=== PATIENT | female | born 1940 | race Asian ===

== ENCOUNTER 2024-10-19 11:35 | Inpatient (IN) | payer OTHER ==
[2024-10-19] MEDS ORDERED: ACETAMINOPHEN INJECTION 100 ML ONE (12:59)
[2024-10-19] MEDS ORDERED: ALBUTEROL SO4 2.5/IPRATROPIUM 0.5 INH SOL 3 ML VIAL.NEB. NEB ONE (12:59)
[2024-10-19] MEDS: ACETAMINOPHEN 1000 MG/100 ML BAG IVPB ONE (13:25)
[2024-10-19] MEDS: ALBUTEROL SO4 2.5/IPRATROPIUM 0.5 INH SOL 3 ML VIAL.NEB. NEB ONE (13:26)
[2024-10-19 13:31] LABS: ABSOLUTE IMMATURE GRANULOCYTES 0.07 x10^3/uL (0.0-0.031); BASOPHILS # 0.09 x10^3/uL (0.01-0.08); EOSINOPHIL % 0.7 % (0.7-5.8); EOSINOPHILS # 0.11 x10^3/uL (0.04-0.36); MCHC 31.8 g/dl (32.2-35.5); MEAN CELL VOLUME 94.0 fl (79.4-94.8); MEAN PLT VOLUME 9.3 fl (9.4-12.3); MONOCYTE # 1.04 x10^3/uL (0.24-0.86); MONOCYTE % 7.0 % (4.7-12.5); RDW 14.1 % (12.5-17.0)
[2024-10-19] MEDS ORDERED: ONDANSETRON 4 MG/2 ML VIAL ONE (13:32)
[2024-10-19] MEDS ORDERED: FAMOTIDINE 20 MG/50 ML IVPB 20 MG/50 ML MG IVPB ONE (13:33)
[2024-10-19] MEDS: FAMOTIDINE 20 MG/50 ML IVPB 20 MG/50 ML MG IVPB ONE (13:42)
[2024-10-19] MEDS: ONDANSETRON 4 MG/2 ML VIAL IVPUSH ONE (13:42)
[2024-10-19] MEDS: SODIUM CHLORIDE 1,000 ML IV STA (13:42)
[2024-10-19 14:00] LABS: CO2 21.0 mmol/L (21-32); GLUCOSE,RANDOM 141.0 mg/dL (74-106)
[2024-10-19 14:03] LABS: CREATININE 1.2 mg/dL (0.55-1.3); SGOT/AST 28.0 U/L (15-37); SGPT/ALT 19.0 U/L (13-61)
[2024-10-19 14:04] LABS: TOT PROT 6.0 g/dl (6.4-8.2)
[2024-10-19 14:06] LABS: ALK PHOS 45.0 U/L (45-117)
[2024-10-19 15:46] LABS: HCV DIAGNOSTIC IN-HOUSE W/RFLX NON-REACTIVE (NONREACTIVE)
[2024-10-19 15:47] LABS: HIV INTERPRETATION NEGATIVE (NEGATIVE)
[2024-10-19] MEDS ORDERED: ONDANSETRON 4 MG/2 ML VIAL IVPUSH PRN (16:51)
[2024-10-19] MEDS ORDERED: ACETAMINOPHEN 1000 MG/100 ML BAG IVPB PRN (16:52)
[2024-10-19] MEDS ORDERED: LACTATED RINGERS SOLUTION 1,000 ML/1,000 ML INFUS.BAG IV SCH (17:00)
[2024-10-19] MEDS ORDERED: AMPICILLIN NA/SULBACTAM NA 3 GM in SODIUM CHLORIDE 100 ML IVPB ONE (17:21)
[2024-10-19] MEDS ORDERED: DOXYCYCLINE INJECTION 100 MG in DEXTROSE 5%-WATER 100 ML IVPB ONE (17:21)
[2024-10-19] MEDS: LACTATED RINGERS SOLUTION 1,000 ML/1,000 ML INFUS.BAG IV SCH (18:56)
[2024-10-19] MEDS: AMPICILLIN NA/SULBACTAM NA 3 GM in SODIUM CHLORIDE 100 ML IVPB ONE (21:40)
[2024-10-19] MEDS: AMITRIPTYLINE HCL 10 MG TABLET PO SCH (21:44)
[2024-10-19] MEDS: DOXYCYCLINE INJECTION 100 MG in DEXTROSE 5%-WATER 100 ML IVPB ONE (23:29)
[2024-10-20] MEDS: ALBUTEROL SO4 2.5/IPRATROPIUM 0.5 INH SOL 3 ML VIAL.NEB. NEB ONE (00:03)
[2024-10-20] MEDS: ESCITALOPRAM OXALATE 10 MG TABLET PO SCH (09:25)
[2024-10-20] MEDS: PANTOPRAZOLE SODIUM 40 MG VIAL IVPUSH SCH ×2 (09:25→21:13)
[2024-10-20] MEDS: METOPROLOL TARTRATE 50 MG TABLET (FP) PO SCH (09:25)
[2024-10-20 11:02] LABS: ABSOLUTE IMMATURE GRANULOCYTES 0.05 x10^3/uL (0.0-0.031); BASOPHILS # 0.10 x10^3/uL (0.01-0.08); EOSINOPHIL % 1.8 % (0.7-5.8); EOSINOPHILS # 0.22 x10^3/uL (0.04-0.36); MCHC 31.2 g/dl (32.2-35.5); MEAN CELL VOLUME 95.3 fl (79.4-94.8); MEAN PLT VOLUME 9.5 fl (9.4-12.3); MONOCYTE # 1.35 x10^3/uL (0.24-0.86); MONOCYTE % 10.8 % (4.7-12.5); RDW 14.4 % (12.5-17.0)
[2024-10-20 11:49] LABS: CO2 26.0 mmol/L (21-32); GLUCOSE,RANDOM 117.0 mg/dL (74-106)
[2024-10-20 11:52] LABS: CREATININE 1.0 mg/dL (0.55-1.3)
[2024-10-20] MEDS: ENOXAPARIN NA (PORCINE) 40 MG/0.4 ML DISP.SYRIN SQ SCH (13:17)
[2024-10-20] MEDS: AMPICILLIN NA/SULBACTAM NA 3 GM in SODIUM CHLORIDE 100 ML IVPB SCH (13:17)
[2024-10-20] MEDS: METOPROLOL TARTRATE 5 MG/5 ML VIAL IVPUSH SCH (13:17)
[2024-10-20] MEDS ORDERED: POLYETHYLENE GLYCOL (HEALTHYLAX) 3350 17 GM PACKET PO PRN (14:54)
[2024-10-20 15:46] VITALS: BMI 26.2
[2024-10-20] MEDS: POLYETHYLENE GLYCOL (HEALTHYLAX) 3350 17 GM PACKET PO ONE (16:47)
[2024-10-20 18:15] LABS: URINE APPEARANCE CLEAR; URINE BILIRUBIN NEGATIVE (NEGATIVE); URINE COLOR YELLOW; URINE GLUCOSE (UA) NEGATIVE (NEGATIVE); URINE KETONE NEGATIVE (NEGATIVE); URINE LEUK ESTERASE NEGATIVE (NEGATIVE); URINE NITRITE NEGATIVE (NEGATIVE); URINE PROTEIN NEGATIVE (NEGATIVE); URINE UROBILINOGEN 0.2 mg/dL (0.2-1.0)
[2024-10-20] MEDS: ENOXAPARIN NA (PORCINE) 60 MG/0.6 ML DISP.SYRIN SQ SCH (21:13)
[2024-10-21 08:29] LABS: ABSOLUTE IMMATURE GRANULOCYTES 0.06 x10^3/uL (0.0-0.031); BASOPHILS # 0.07 x10^3/uL (0.01-0.08); EOSINOPHIL % 2.8 % (0.7-5.8); EOSINOPHILS # 0.27 x10^3/uL (0.04-0.36); MCHC 31.8 g/dl (32.2-35.5); MEAN CELL VOLUME 93.0 fl (79.4-94.8); MEAN PLT VOLUME 9.4 fl (9.4-12.3); MONOCYTE # 0.76 x10^3/uL (0.24-0.86); MONOCYTE % 8.0 % (4.7-12.5); RDW 14.3 % (12.5-17.0)
[2024-10-21 08:51] LABS: CO2 27.0 mmol/L (21-32); GLUCOSE,RANDOM 93.0 mg/dL (74-106)
[2024-10-21 08:54] LABS: CREATININE 0.8 mg/dL (0.55-1.3); SGOT/AST 22.0 U/L (15-37)
[2024-10-21 08:55] LABS: SGPT/ALT 15.0 U/L (13-61)
[2024-10-21 08:56] LABS: TOT PROT 4.9 g/dl (6.4-8.2)
[2024-10-21 08:57] LABS: ALK PHOS 38.0 U/L (45-117)
[2024-10-21] MEDS: METOPROLOL TARTRATE 50 MG TABLET (FP) PO SCH (09:55)
[2024-10-21] MEDS ORDERED: PANTOPRAZOLE SODIUM 40 MG VIAL IVPUSH SCH (10:00)
[2024-10-21] MEDS: ALBUTEROL SO4 2.5/IPRATROPIUM 0.5 INH SOL 3 ML VIAL.NEB. NEB ONE (22:25)
[2024-10-22] MEDS ORDERED: ALBUTEROL SO4 HFA INHALER IH PRN (03:09)
[2024-10-22] MEDS: LACTATED RINGERS SOLUTION 1,000 ML/1,000 ML INFUS.BAG IV SCH (20:30)
[2024-10-22] MEDS: ENOXAPARIN NA (PORCINE) 60 MG/0.6 ML DISP.SYRIN SQ SCH (21:18)
[2024-10-22] MEDS: MONTELUKAST NA 10 MG TABLET PO SCH (21:18)
[2024-10-22] MEDS: DEXTROSE 5%-LACTATED RINGERS 1,000 ML IV SCH (22:51)
[2024-10-23 08:56] LABS: ABSOLUTE IMMATURE GRANULOCYTES 0.02 x10^3/uL (0.0-0.031); BASOPHILS # 0.04 x10^3/uL (0.01-0.08); EOSINOPHIL % 2.7 % (0.7-5.8); EOSINOPHILS # 0.21 x10^3/uL (0.04-0.36); MCHC 31.4 g/dl (32.2-35.5); MEAN CELL VOLUME 94.9 fl (79.4-94.8); MEAN PLT VOLUME 9.5 fl (9.4-12.3); MONOCYTE # 0.68 x10^3/uL (0.24-0.86); MONOCYTE % 8.9 % (4.7-12.5); RDW 14.1 % (12.5-17.0)
[2024-10-23 09:52] LABS: CO2 27.0 mmol/L (21-32); GLUCOSE,RANDOM 110.0 mg/dL (74-106)
[2024-10-23 09:55] LABS: CREATININE 1.0 mg/dL (0.55-1.3); SGOT/AST 28.0 U/L (15-37); SGPT/ALT 16.0 U/L (13-61)
[2024-10-23 09:56] LABS: TOT PROT 4.8 g/dl (6.4-8.2)
[2024-10-23 09:57] LABS: ALK PHOS 42.0 U/L (45-117)
[2024-10-23] MEDS ORDERED: KCL 10 MEQ IVPB 10 MEQ/100 ML INFUS.BAG IVPB SCH (11:15)
[2024-10-23] MEDS: ALBUTEROL SO4 2.5/IPRATROPIUM 0.5 INH SOL 3 ML VIAL.NEB. NEB PRN (11:20)
[2024-10-23] MEDS: POTASSIUM CHLORIDE ORAL LIQUID 20 MEQ/15 ML PO ONE (12:03)
[2024-10-23] MEDS: MAGNESIUM SULFATE IN WATER 2 GM/50 ML IVPB IVPB ONE (12:06)
[2024-10-23] MEDS: ALBUTEROL SO4 2.5/IPRATROPIUM 0.5 INH SOL 3 ML VIAL.NEB. NEB SCH (16:43)
[2024-10-23] MEDS: POTASSIUM CHLORIDE 10 MEQ in AMINO ACIDS 4.25%/D5W 1,000 ML IV SCH (18:06)
[2024-10-23] MEDS: guaiFENesin/D-METHORPHAN HB 10 ML UNIT-DOSE CUPS PO PRN (18:49)
[2024-10-23] MEDS: OXYBUTYNIN CHLORIDE 5 MG TABLET PO SCH (21:31)
[2024-10-24 08:32] LABS: ABSOLUTE IMMATURE GRANULOCYTES 0.02 x10^3/uL (0.0-0.031); BASOPHILS # 0.05 x10^3/uL (0.01-0.08); EOSINOPHIL % 4.3 % (0.7-5.8); EOSINOPHILS # 0.32 x10^3/uL (0.04-0.36); MCHC 32.0 g/dl (32.2-35.5); MEAN CELL VOLUME 92.9 fl (79.4-94.8); MEAN PLT VOLUME 9.8 fl (9.4-12.3); MONOCYTE # 0.66 x10^3/uL (0.24-0.86); MONOCYTE % 8.8 % (4.7-12.5); RDW 14.2 % (12.5-17.0)
[2024-10-24 08:57] LABS: CO2 28.0 mmol/L (21-32); GLUCOSE,RANDOM 130.0 mg/dL (74-106)
[2024-10-24 09:00] LABS: CREATININE 0.9 mg/dL (0.55-1.3); SGOT/AST 30.0 U/L (15-37); SGPT/ALT 17.0 U/L (13-61)
[2024-10-24 09:01] LABS: TOT PROT 5.1 g/dl (6.4-8.2)
[2024-10-24 09:02] LABS: ALK PHOS 45.0 U/L (45-117)
[2024-10-24] MEDS: SPIRONOLACTONE 25 MG TABLET PO SCH (12:16)
[2024-10-24] MEDS: POTASSIUM CHLORIDE 10 MEQ in AMINO ACIDS 4.25%/D5W 1,000 ML IV SCH (14:58)
[2024-10-24] MEDS: POTASSIUM PHOSPHATE 30 MM in SODIUM CHLORIDE 500 ML IVPB ONE (17:26)
[2024-10-24] MEDS: MECLIZINE HCL 12.5 MG TABLET PO SCH (21:06)
[2024-10-25 08:14] LABS: ABSOLUTE IMMATURE GRANULOCYTES 0.02 x10^3/uL (0.0-0.031); BASOPHILS # 0.04 x10^3/uL (0.01-0.08); EOSINOPHIL % 5.3 % (0.7-5.8); EOSINOPHILS # 0.36 x10^3/uL (0.04-0.36); MCHC 31.5 g/dl (32.2-35.5); MEAN CELL VOLUME 95.0 fl (79.4-94.8); MEAN PLT VOLUME 9.8 fl (9.4-12.3); MONOCYTE # 0.60 x10^3/uL (0.24-0.86); MONOCYTE % 8.8 % (4.7-12.5); RDW 14.4 % (12.5-17.0)
[2024-10-25 08:58] LABS: GLUCOSE,RANDOM 108.0 mg/dL (74-106)
[2024-10-25 08:59] LABS: CO2 28.0 mmol/L (21-32)
[2024-10-25 09:01] LABS: CREATININE 0.9 mg/dL (0.55-1.3); SGOT/AST 34.0 U/L (15-37); SGPT/ALT 20.0 U/L (13-61)
[2024-10-25 09:04] LABS: ALK PHOS 43.0 U/L (45-117); TOT PROT 5.2 g/dl (6.4-8.2)
[2024-10-25] MEDS: THIAMINE HCL 200 MG/2 ML VIAL IVPB SCH (15:32)
[2024-10-26 09:11] LABS: ABSOLUTE IMMATURE GRANULOCYTES 0.03 x10^3/uL (0.0-0.031); BASOPHILS # 0.06 x10^3/uL (0.01-0.08); EOSINOPHIL % 5.4 % (0.7-5.8); EOSINOPHILS # 0.43 x10^3/uL (0.04-0.36); MCHC 30.9 g/dl (32.2-35.5); MEAN CELL VOLUME 95.6 fl (79.4-94.8); MEAN PLT VOLUME 9.7 fl (9.4-12.3); MONOCYTE # 0.64 x10^3/uL (0.24-0.86); MONOCYTE % 8.0 % (4.7-12.5); RDW 14.3 % (12.5-17.0)
[2024-10-26 09:58] LABS: CO2 27.0 mmol/L (21-32); GLUCOSE,RANDOM 121.0 mg/dL (74-106)
[2024-10-26 10:01] LABS: CREATININE 1.0 mg/dL (0.55-1.3); SGOT/AST 38.0 U/L (15-37); SGPT/ALT 25.0 U/L (13-61)
[2024-10-26 10:03] LABS: TOT PROT 5.6 g/dl (6.4-8.2)
[2024-10-26 10:04] LABS: ALK PHOS 47.0 U/L (45-117)
[2024-10-26] MEDS: POTASSIUM CHLORIDE 10 MEQ in AMINO ACIDS 4.25%/D5W 1,000 ML IV SCH (16:10)
[2024-10-27 08:11] LABS: ABSOLUTE IMMATURE GRANULOCYTES 0.03 x10^3/uL (0.0-0.031); BASOPHILS # 0.06 x10^3/uL (0.01-0.08); EOSINOPHIL % 4.8 % (0.7-5.8); EOSINOPHILS # 0.42 x10^3/uL (0.04-0.36); MCHC 31.5 g/dl (32.2-35.5); MEAN CELL VOLUME 96.2 fl (79.4-94.8); MEAN PLT VOLUME 10.1 fl (9.4-12.3); MONOCYTE # 0.71 x10^3/uL (0.24-0.86); MONOCYTE % 8.1 % (4.7-12.5); RDW 14.3 % (12.5-17.0)
[2024-10-27 09:08] LABS: CO2 27.0 mmol/L (21-32); GLUCOSE,RANDOM 115.0 mg/dL (74-106)
[2024-10-27 09:10] LABS: SGPT/ALT 26.0 U/L (13-61)
[2024-10-27 09:11] LABS: CREATININE 1.0 mg/dL (0.55-1.3); SGOT/AST 39.0 U/L (15-37)
[2024-10-27 09:12] LABS: TOT PROT 5.5 g/dl (6.4-8.2)
[2024-10-27 09:13] LABS: ALK PHOS 45.0 U/L (45-117)
[2024-10-27] MEDS ORDERED: ALBUTEROL SULFATE 0.021% (0.63 MG/3 ML) VIAL.NEB NEB PRN (12:43)
[2024-10-27] MEDS: NAPH,MB-DB/K PH,MBDB POWDER PACKET PO SCH (14:19)
[2024-10-27] MEDS: PIPERACILLIN/TAZOB 3.375 GM 3.375 GM in DEXTROSE 5%-WATER - 50 ML IVPB ONE (21:56)
[2024-10-28] MEDS: PIPERACILLIN/TAZOB 3.375 GM 3.375 GM in DEXTROSE 5%-WATER - 50 ML IVPB SCH (01:13)
[2024-10-28 09:35] LABS: ABSOLUTE IMMATURE GRANULOCYTES 0.04 x10^3/uL (0.0-0.031); BASOPHILS # 0.05 x10^3/uL (0.01-0.08); EOSINOPHIL % 4.1 % (0.7-5.8); EOSINOPHILS # 0.39 x10^3/uL (0.04-0.36); MCHC 30.7 g/dl (32.2-35.5); MEAN CELL VOLUME 95.7 fl (79.4-94.8); MEAN PLT VOLUME 10.2 fl (9.4-12.3); MONOCYTE # 0.71 x10^3/uL (0.24-0.86); MONOCYTE % 7.4 % (4.7-12.5); RDW 14.4 % (12.5-17.0)
[2024-10-28 09:42] LABS: INR 1.02 (0.83-1.09); PROTHROMBIN TIME (PATIENT) 11.1 SEC (9.7-13.0)
[2024-10-28 10:22] LABS: CO2 26.0 mmol/L (21-32)
[2024-10-28 10:23] LABS: GLUCOSE,RANDOM 125.0 mg/dL (74-106)
[2024-10-28 10:26] LABS: CREATININE 1.0 mg/dL (0.55-1.3)
[2024-10-28] MEDS: ENOXAPARIN NA (PORCINE) 40 MG/0.4 ML DISP.SYRIN SQ ONE (12:39)
[2024-10-28] MEDS: AMINO ACIDS IV SCH ×2 (13:49→17:16)
[2024-10-28] MEDS: SODIUM PHOSPHATE IV SCH ×2 (13:49→17:16)
[2024-10-28] MEDS: [UNRECOGNIZED DRUG - OTHER] IV SCH ×2 (13:49→17:16)
[2024-10-28] MEDS: POTASSIUM CHLORIDE IV SCH ×2 (13:49→17:16)
[2024-10-28] MEDS ORDERED: POTASSIUM PHOSPHATE 30 MM in DEXTROSE 5%-WATER - 500 ML IVPB ONE (16:56)
[2024-10-28] MEDS: FAT EMULSION/OLIVE/SOY/PHOSPHO 500 ML IV SCH (21:21)
[2024-10-28] MEDS ORDERED: FAT EMULSION/OLIVE/SOY (CLINOLIPID) 500 ML EMULSION IV SCH (22:00)
[2024-10-29 08:30] LABS: MCHC 31.3 g/dl (32.2-35.5); MEAN CELL VOLUME 95.4 fl (79.4-94.8); MEAN PLT VOLUME 10.1 fl (9.4-12.3); RDW 14.3 % (12.5-17.0)
[2024-10-29] MEDS: MULTIVIT INJ. ADULT COMBO WITH VIT K 1 COMBO 10 ML VIAL IV SCH (09:10)
[2024-10-29 09:23] LABS: CO2 25.0 mmol/L (21-32); GLUCOSE,RANDOM 140.0 mg/dL (74-106)
[2024-10-29 09:26] LABS: CREATININE 1.0 mg/dL (0.55-1.3); SGOT/AST 42.0 U/L (15-37); SGPT/ALT 38.0 U/L (13-61)
[2024-10-29 09:27] LABS: TOT PROT 6.2 g/dl (6.4-8.2)
[2024-10-29 09:29] LABS: ALK PHOS 65.0 U/L (45-117)
[2024-10-29] MEDS ORDERED: cefOXitin SODIUM 2 GM VIAL (RESTRICTED TO ID) IVPB ONE (10:49)
[2024-10-29] MEDS ORDERED: DEXAMETHASONE SOD PHOSPHATE 4 MG/1 ML VIAL ONE (12:03)
[2024-10-29] MEDS ORDERED: MIDAZOLAM HCL 2 MG/2 ML SINGLE DOSE VIAL ONE (12:03)
[2024-10-29] MEDS ORDERED: ROCURONIUM BROMIDE 50 MG/5 ML SYRINGE ONE ×2 (12:15→12:52)
[2024-10-29] MEDS ORDERED: PROPOFOL 40 ML ONE (12:15)
[2024-10-29] MEDS ORDERED: SEVOFLURANE 250 ML BTL ONE (12:15)
[2024-10-29] MEDS ORDERED: LIDOCAINE HCL 2% 100 MG/5 ML DISP.SYRIN ONE (12:16)
[2024-10-29] MEDS: cefOXitin SODIUM 1 GM VIAL (RESTRICTED TO ID) IVPB ONE ×2 (12:25)
[2024-10-29] MEDS ORDERED: TRANEXAMIC ACID 1000 MG/10 ML VIAL ONE (12:51)
[2024-10-29] MEDS: BUPIVACAINE HCL/PF 0.25% (2.5MG/ML) 10 ML VIAL IJ ONE ×2 (12:58)
[2024-10-29] MEDS ORDERED: ONDANSETRON 4 MG/2 ML VIAL IVPUSH PRN (13:43)
[2024-10-29] MEDS ORDERED: ALBUTEROL SO4 HFA INHALER IH ONE (14:17)
[2024-10-29] MEDS ORDERED: EPINEPHrine 1:10,000 (P-F SYR) 1 MG/10 ML DISP.SYRIN ONE (15:11)
[2024-10-29] MEDS ORDERED: ONDANSETRON 4 MG/2 ML VIAL ONE (15:22)
[2024-10-29] MEDS ORDERED: SUGAMMADEX SODIUM 200 MG/2 ML VIAL ONE (15:24)
[2024-10-29] MEDS ORDERED: ALBUTEROL SULFATE 0.021% (0.63 MG/3 ML) VIAL.NEB NEB PRN (17:33)
[2024-10-29] MEDS: METOCLOPRAMIDE HCL INJECTION 10 MG/2 ML VIAL IVPUSH SCH (18:42)
[2024-10-29] MEDS: PIPERACILLIN/TAZOB 3.375 GM 3.375 GM in DEXTROSE 5%-WATER - 50 ML IVPB SCH ×2 (18:42→19:40)
[2024-10-29] MEDS: POTASSIUM CHLORIDE IV SCH (19:23)
[2024-10-29] MEDS: SODIUM PHOSPHATE IV SCH (19:23)
[2024-10-29] MEDS: AMINO ACIDS IV SCH (19:23)
[2024-10-29] MEDS: [UNRECOGNIZED DRUG - OTHER] IV SCH (19:23)
[2024-10-29] MEDS: LACTATED RINGERS SOLUTION 1,000 ML IV SCH ×2 (19:24→19:40)
[2024-10-29] MEDS: ALBUTEROL SO4 2.5/IPRATROPIUM 0.5 INH SOL 3 ML VIAL.NEB. NEB SCH (20:00)
[2024-10-29] MEDS: MUPIROCIN 2% TOPICAL OINTMENT FOR DECOLONIZATION NS SCH (21:53)
[2024-10-29] MEDS: ACETAMINOPHEN 1000 MG/100 ML BAG IVPB SCH (21:55)
[2024-10-29] MEDS: PANTOPRAZOLE SODIUM 40 MG VIAL IVPUSH SCH (21:55)
[2024-10-29] MEDS: MONTELUKAST NA 10 MG TABLET PO SCH (21:56)
[2024-10-29] MEDS: AMITRIPTYLINE HCL 10 MG TABLET PO SCH (21:56)
[2024-10-29] MEDS ORDERED: MUPIROCIN 2% TOPICAL OINTMENT FOR DECOLONIZATION NS SCH (22:00)
[2024-10-29] MEDS ORDERED: CHLORHEXIDINE GLUCONATE 4% CLEANSER FOR DECOLONIZATION TP SCH (22:00)
[2024-10-29] MEDS: FAT EMULSION/OLIVE/SOY/PHOSPHO 500 ML IV SCH (22:05)
[2024-10-29] MEDS ORDERED: ONDANSETRON 4 MG/2 ML VIAL IVPUSH SCH (22:45)
[2024-10-30] MEDS: PIPERACILLIN/TAZOB 3.375 GM 3.375 GM in DEXTROSE 5%-WATER - 50 ML IVPB SCH ×2 (01:25→17:28)
[2024-10-30 07:06] LABS: ABSOLUTE IMMATURE GRANULOCYTES 0.07 x10^3/uL (0.0-0.031); BASOPHILS # 0.02 x10^3/uL (0.01-0.08); EOSINOPHIL % 0.0 % (0.7-5.8); EOSINOPHILS # 0.00 x10^3/uL (0.04-0.36); MCHC 31.0 g/dl (32.2-35.5); MEAN CELL VOLUME 96.4 fl (79.4-94.8); MEAN PLT VOLUME 10.7 fl (9.4-12.3); MONOCYTE # 1.42 x10^3/uL (0.24-0.86); MONOCYTE % 10.9 % (4.7-12.5); RDW 14.2 % (12.5-17.0)
[2024-10-30 07:34] LABS: CO2 23.0 mmol/L (21-32); GLUCOSE,RANDOM 145.0 mg/dL (74-106)
[2024-10-30 07:37] LABS: CREATININE 1.1 mg/dL (0.55-1.3); SGOT/AST 55.0 U/L (15-37); SGPT/ALT 52.0 U/L (13-61)
[2024-10-30 07:38] LABS: TOT PROT 5.8 g/dl (6.4-8.2)
[2024-10-30 07:40] LABS: ALK PHOS 47.0 U/L (45-117)
[2024-10-30] MEDS: SPIRONOLACTONE 25 MG TABLET PO SCH (10:43)
[2024-10-30] MEDS: OXYBUTYNIN CHLORIDE 5 MG TABLET PO SCH ×2 (10:44→21:23)
[2024-10-30] MEDS: ESCITALOPRAM OXALATE 10 MG TABLET PO SCH (10:44)
[2024-10-30] MEDS: ENOXAPARIN NA (PORCINE) 40 MG/0.4 ML DISP.SYRIN SQ SCH (10:45)
[2024-10-30] MEDS: MAGNESIUM 2GM/50ML STERILE WATER IVPB IVPB ONE (10:56)
[2024-10-30] MEDS: MULTIVIT INJ. ADULT COMBO WITH VIT K 1 COMBO 10 ML VIAL IV SCH (13:40)
[2024-10-30] MEDS: METOCLOPRAMIDE HCL INJECTION 10 MG/2 ML VIAL IVPUSH SCH (17:37)
[2024-10-30] MEDS: LACTATED RINGERS SOLUTION 1,000 ML IV SCH (17:47)
[2024-10-30] MEDS: ALBUTEROL SO4 2.5/IPRATROPIUM 0.5 INH SOL 3 ML VIAL.NEB. NEB SCH (19:31)
[2024-10-30] MEDS ORDERED: TRIMETHOBENZAMIDE HCL 200MG/2ML INJ IM PRN (20:13)
[2024-10-30] MEDS: AMITRIPTYLINE HCL 10 MG TABLET PO SCH (21:23)
[2024-10-30] MEDS: PANTOPRAZOLE SODIUM 40 MG VIAL IVPUSH SCH (21:23)
[2024-10-30] MEDS: MONTELUKAST NA 10 MG TABLET PO SCH (21:24)
[2024-10-30] MEDS: FAT EMULSION/OLIVE/SOY/PHOSPHO 500 ML IV SCH (23:59)
[2024-10-31] MEDS: AMINO ACIDS IV SCH (04:12)
[2024-10-31] MEDS: SODIUM PHOSPHATE IV SCH (04:12)
[2024-10-31] MEDS: [UNRECOGNIZED DRUG - OTHER] IV SCH (04:12)
[2024-10-31] MEDS: POTASSIUM CHLORIDE IV SCH (04:12)
[2024-10-31 08:53] LABS: MCHC 31.8 g/dl (32.2-35.5); MEAN CELL VOLUME 94.0 fl (79.4-94.8); MEAN PLT VOLUME 10.7 fl (9.4-12.3); RDW 14.6 % (12.5-17.0)
[2024-10-31 09:43] LABS: CO2 23.0 mmol/L (21-32); GLUCOSE,RANDOM 100.0 mg/dL (74-106)
[2024-10-31 09:44] LABS: LDL CHOLESTEROL (ONLY SJRH) 65.0 mg/dL (5-100); TOT PROT 5.2 g/dl (6.4-8.2)
[2024-10-31 09:45] LABS: ALK PHOS 40.0 U/L (45-117); CREATININE 1.1 mg/dL (0.55-1.3); SGOT/AST 28.0 U/L (15-37); SGPT/ALT 32.0 U/L (13-61)
[2024-10-31] MEDS ORDERED: SPIRONOLACTONE 25 MG TABLET PO SCH (10:00)
[2024-10-31] MEDS ORDERED: ENOXAPARIN NA (PORCINE) 40 MG/0.4 ML DISP.SYRIN SQ SCH (10:00)
[2024-10-31] MEDS ORDERED: ESCITALOPRAM OXALATE 10 MG TABLET PO SCH (10:00)
[2024-10-31] MEDS: MULTIVIT INJ. ADULT COMBO WITH VIT K 1 COMBO 10 ML VIAL IV SCH (11:44)
[2024-10-31] MEDS ORDERED: RIVAROXABAN 10 MG TABLET PO SCH (18:00)
[2024-10-31] MEDS: ALBUTEROL SULFATE 0.021% (0.63 MG/3 ML) VIAL.NEB NEB PRN (18:19)
[2024-10-31] MEDS: ENOXAPARIN NA (PORCINE) 60 MG/0.6 ML DISP.SYRIN SQ SCH (18:53)
[2024-11-01 11:10] LABS: ABSOLUTE IMMATURE GRANULOCYTES 0.05 x10^3/uL (0.0-0.031); BASOPHILS # 0.04 x10^3/uL (0.01-0.08); EOSINOPHIL % 4.7 % (0.7-5.8); EOSINOPHILS # 0.43 x10^3/uL (0.04-0.36); MCHC 32.6 g/dl (32.2-35.5); MEAN CELL VOLUME 93.2 fl (79.4-94.8); MEAN PLT VOLUME 9.8 fl (9.4-12.3); MONOCYTE # 0.79 x10^3/uL (0.24-0.86); MONOCYTE % 8.7 % (4.7-12.5); RDW 14.7 % (12.5-17.0)
[2024-11-01] MEDS: POTASSIUM CHLORIDE IV SCH (11:48)
[2024-11-01] MEDS: [UNRECOGNIZED DRUG - OTHER] IV SCH (11:48)
[2024-11-01] MEDS: SODIUM PHOSPHATE IV SCH (11:48)
[2024-11-01 13:57] LABS: CO2 26 mmol/L (21-32); GLUCOSE,RANDOM 131 mg/dL (74-106)
[2024-11-01 14:00] LABS: CREATININE 1.0 mg/dL (0.55-1.3); SGOT/AST 22 U/L (15-37); SGPT/ALT 28 U/L (13-61)
[2024-11-01 14:01] LABS: TOT PROT 5.5 g/dl (6.4-8.2)
[2024-11-01 14:03] LABS: ALK PHOS 54 U/L (45-117)
[2024-11-01] MEDS: POTASSIUM PHOSPHATE 30 MM in SODIUM CHLORIDE 500 ML IVPB ONE (22:38)
[2024-11-02] MEDS ORDERED: POTASSIUM PHOSPHATE 30 MM in SODIUM CHLORIDE 500 ML IVPB ONE (03:00)
[2024-11-02 08:03] LABS: ABSOLUTE IMMATURE GRANULOCYTES 0.04 x10^3/uL (0.0-0.031); BASOPHILS # 0.03 x10^3/uL (0.01-0.08); EOSINOPHIL % 4.4 % (0.7-5.8); EOSINOPHILS # 0.41 x10^3/uL (0.04-0.36); MCHC 33.2 g/dl (32.2-35.5); MEAN CELL VOLUME 92.7 fl (79.4-94.8); MEAN PLT VOLUME 10.5 fl (9.4-12.3); MONOCYTE # 0.67 x10^3/uL (0.24-0.86); MONOCYTE % 7.2 % (4.7-12.5); RDW 14.6 % (12.5-17.0)
[2024-11-02 09:03] LABS: CO2 25.0 mmol/L (21-32); SGOT/AST 23.0 U/L (15-37); SGPT/ALT 28.0 U/L (13-61)
[2024-11-02 09:04] LABS: GLUCOSE,RANDOM 136.0 mg/dL (74-106)
[2024-11-02 09:05] LABS: TOT PROT 5.9 g/dl (6.4-8.2)
[2024-11-02 09:06] LABS: ALK PHOS 61.0 U/L (45-117); CREATININE 0.8 mg/dL (0.55-1.3)
[2024-11-02] MEDS: ENOXAPARIN NA (PORCINE) 60 MG/0.6 ML DISP.SYRIN SQ SCH (21:34)
[2024-11-03] MEDS ORDERED: INSULIN ASPART SLIDING SCALE (NOVOLOG) 1 VIAL SQ ONE (06:53)
[2024-11-03 09:16] LABS: CO2 25.0 mmol/L (21-32)
[2024-11-03 09:17] LABS: GLUCOSE,RANDOM 141.0 mg/dL (74-106)
[2024-11-03 09:19] LABS: SGOT/AST 19.0 U/L (15-37); SGPT/ALT 23.0 U/L (13-61)
[2024-11-03 09:20] LABS: CREATININE 0.8 mg/dL (0.55-1.3)
[2024-11-03 09:21] LABS: TOT PROT 5.8 g/dl (6.4-8.2)
[2024-11-03 09:22] LABS: ALK PHOS 59.0 U/L (45-117)
[2024-11-03] MEDS: SCOPOLAMINE HYDROBROMIDE 1 PATCH PATCH.TD72 TD SCH (11:01)
[2024-11-03] MEDS: KCL 10 MEQ IVPB 10 MEQ/100 ML INFUS.BAG IVPB SCH (16:28)
[2024-11-03] MEDS: MAGNESIUM 1GM/D5W - 1 GM/100 ML IVPB IVPB ONE (16:28)
[2024-11-03] MEDS: METOPROLOL TARTRATE 25 MG TABLET (FP) PO ONE (17:15)
[2024-11-04 07:48] LABS: MCHC 31.7 g/dl (32.2-35.5); MEAN CELL VOLUME 93.5 fl (79.4-94.8); MEAN PLT VOLUME 10.3 fl (9.4-12.3); RDW 14.6 % (12.5-17.0)
[2024-11-04 09:21] LABS: CO2 23.0 mmol/L (21-32); GLUCOSE,RANDOM 143.0 mg/dL (74-106)
[2024-11-04 09:23] LABS: SGPT/ALT 23.0 U/L (13-61)
[2024-11-04 09:24] LABS: CREATININE 0.7 mg/dL (0.55-1.3); SGOT/AST 25.0 U/L (15-37)
[2024-11-04 09:25] LABS: TOT PROT 5.7 g/dl (6.4-8.2)
[2024-11-04 09:26] LABS: ALK PHOS 64.0 U/L (45-117)
[2024-11-04] MEDS: KCL 10 MEQ IVPB 10 MEQ/100 ML INFUS.BAG IVPB SCH (14:48)
[2024-11-04] MEDS: SODIUM PHOSPHATE IV SCH (15:17)
[2024-11-04] MEDS: [UNRECOGNIZED DRUG - OTHER] IV SCH (15:17)
[2024-11-04] MEDS: POTASSIUM CHLORIDE IV SCH (15:17)
[2024-11-05 10:45] LABS: CO2 24.0 mmol/L (21-32)
[2024-11-05 10:47] LABS: GLUCOSE,RANDOM 132.0 mg/dL (74-106)
[2024-11-05 10:50] LABS: CREATININE 0.73 mg/dL (0.55-1.3); SGOT/AST 30.0 U/L (15-37); SGPT/ALT 28.0 U/L (13-61)
[2024-11-05 10:52] LABS: ALK PHOS 75.0 U/L (45-117); TOT PROT 6.3 g/dl (6.4-8.2)
[2024-11-05] MEDS ORDERED: SENNOSIDES/DOCUSATE COMBO (SENNA PLUS) TABLET (UD) PO SCH (22:00)
[2024-11-06 09:25] LABS: ABSOLUTE IMMATURE GRANULOCYTES 0.11 x10^3/uL (0.0-0.031); BASOPHILS # 0.06 x10^3/uL (0.01-0.08); EOSINOPHIL % 7.5 % (0.7-5.8); EOSINOPHILS # 0.73 x10^3/uL (0.04-0.36); MCHC 31.9 g/dl (32.2-35.5); MEAN CELL VOLUME 94.4 fl (79.4-94.8); MEAN PLT VOLUME 10.4 fl (9.4-12.3); MONOCYTE # 0.92 x10^3/uL (0.24-0.86); MONOCYTE % 9.4 % (4.7-12.5); RDW 14.6 % (12.5-17.0)
[2024-11-06] MEDS: ENOXAPARIN NA (PORCINE) 60 MG/0.6 ML DISP.SYRIN SQ ONE (17:29)
[2024-11-07 08:54] LABS: GLUCOSE,RANDOM 133.0 mg/dL (74-106); TOT PROT 6.2 g/dl (6.4-8.2)
[2024-11-07 08:55] LABS: CO2 20.0 mmol/L (21-32)
[2024-11-07 08:57] LABS: ALK PHOS 71.0 U/L (40-150)
[2024-11-07 08:59] LABS: SGOT/AST 33.0 U/L (5-34)
[2024-11-07 09:00] LABS: CREATININE 0.78 mg/dL (0.55-1.3)
[2024-11-07 09:01] LABS: SGPT/ALT 18.0 U/L (0-55)
[2024-11-07] MEDS: MAGNESIUM 2GM/50ML STERILE WATER IVPB IVPB ONE (13:32)
[2024-11-08 08:12] LABS: MCHC 31.8 g/dl (32.2-35.5); MEAN CELL VOLUME 94.0 fl (79.4-94.8); MEAN PLT VOLUME 10.0 fl (9.4-12.3); RDW 14.8 % (12.5-17.0)
[2024-11-08 08:32] LABS: GLUCOSE,RANDOM 129.0 mg/dL (74-106); TOT PROT 7.6 g/dl (6.4-8.2)
[2024-11-08 08:33] LABS: CO2 19.0 mmol/L (21-32)
[2024-11-08 08:38] LABS: CREATININE 0.83 mg/dL (0.55-1.3); SGOT/AST 46.0 U/L (5-34); SGPT/ALT 33.0 U/L (0-55)
[2024-11-08 11:29] LABS: ALK PHOS 93.0 U/L (40-150)
[2024-11-08] MEDS ORDERED: FENTANYL CITRATE/PF 50 MCG/ML VIAL ONE (14:15)
[2024-11-08] MEDS: FENTANYL CITRATE/PF 50 MCG/ML VIAL IVPUSH ONE (14:19)
[2024-11-08] MEDS: SODIUM CHLORIDE 500 ML IV ONE (15:40)
[2024-11-08] MEDS: [UNRECOGNIZED DRUG - OTHER] IV SCH (18:37)
[2024-11-08] MEDS: POTASSIUM CHLORIDE IV SCH (18:37)
[2024-11-08] MEDS: SODIUM PHOSPHATE IV SCH (18:37)
[2024-11-09 08:39] LABS: MCHC 31.7 g/dl (32.2-35.5); MEAN CELL VOLUME 94.3 fl (79.4-94.8); MEAN PLT VOLUME 10.6 fl (9.4-12.3); RDW 14.7 % (12.5-17.0)
[2024-11-09 09:16] LABS: GLUCOSE,RANDOM 134.0 mg/dL (74-106); TOT PROT 6.6 g/dl (6.4-8.2)
[2024-11-09 09:17] LABS: CO2 17.0 mmol/L (21-32)
[2024-11-09 09:18] LABS: ALK PHOS 84.0 U/L (40-150)
[2024-11-09 09:21] LABS: SGOT/AST 42.0 U/L (5-34); SGPT/ALT 32.0 U/L (0-55)
[2024-11-09 09:22] LABS: CREATININE 0.8 mg/dL (0.55-1.3)
[2024-11-10 08:33] LABS: MCHC 32.4 g/dl (32.2-35.5); MEAN CELL VOLUME 94.3 fl (79.4-94.8); MEAN PLT VOLUME 10.8 fl (9.4-12.3); RDW 14.8 % (12.5-17.0)
[2024-11-10 08:58] LABS: GLUCOSE,RANDOM 142.0 mg/dL (74-106); TOT PROT 6.4 g/dl (6.4-8.2)
[2024-11-10 08:59] LABS: CO2 17.0 mmol/L (21-32)
[2024-11-10 09:01] LABS: ALK PHOS 78.0 U/L (40-150)
[2024-11-10 09:03] LABS: SGOT/AST 34.0 U/L (5-34); SGPT/ALT 28.0 U/L (0-55)
[2024-11-10 09:04] LABS: CREATININE 0.84 mg/dL (0.55-1.3)
[2024-11-10] MEDS ORDERED: PIPERACILLIN/TAZOB 3.375 GM 3.375 GM in DEXTROSE 5%-WATER - 50 ML IVPB SCH (11:00)
[2024-11-10] MEDS ORDERED: MAGNESIUM SULF 50% (8.12 MEQ/2 ML-1 GM VIAL) IVPB ONE (11:11)
[2024-11-10] MEDS: ENOXAPARIN NA (PORCINE) 60 MG/0.6 ML DISP.SYRIN SQ SCH (11:55)
[2024-11-10] MEDS: PIPERACILLIN/TAZOB 3.375 GM 3.375 GM in DEXTROSE 5%-WATER - 50 ML IVPB SCH (11:55)
[2024-11-10] MEDS: MAGNESIUM 1GM/D5W - 1 GM/100 ML IVPB IVPB ONE (12:33)
[2024-11-11 09:17] LABS: ABSOLUTE IMMATURE GRANULOCYTES 0.06 x10^3/uL (0.0-0.031); BASOPHILS # 0.06 x10^3/uL (0.01-0.08); EOSINOPHIL % 5.8 % (0.7-5.8); EOSINOPHILS # 0.70 x10^3/uL (0.04-0.36); MCHC 30.9 g/dl (32.2-35.5); MEAN CELL VOLUME 93.8 fl (79.4-94.8); MEAN PLT VOLUME 11.0 fl (9.4-12.3); MONOCYTE # 0.75 x10^3/uL (0.24-0.86); MONOCYTE % 6.3 % (4.7-12.5); RDW 14.9 % (12.5-17.0)
[2024-11-11 09:55] LABS: GLUCOSE,RANDOM 148.0 mg/dL (74-106); TOT PROT 6.1 g/dl (6.4-8.2)
[2024-11-11 09:56] LABS: CO2 16.0 mmol/L (21-32)
[2024-11-11] MEDS ORDERED: RIVAROXABAN 10 MG TABLET GT SCH (10:00)
[2024-11-11 10:01] LABS: CREATININE 1.04 mg/dL (0.55-1.3); SGOT/AST 57.0 U/L (5-34); SGPT/ALT 43.0 U/L (0-55)
[2024-11-11 10:12] LABS: ALK PHOS 95.0 U/L (40-150)
[2024-11-11] MEDS: ENOXAPARIN NA (PORCINE) 60 MG/0.6 ML DISP.SYRIN SQ SCH (11:03)
[2024-11-11] MEDS: [UNRECOGNIZED DRUG - OTHER] IV SCH (12:58)
[2024-11-11] MEDS: SODIUM PHOSPHATE IV SCH (12:58)
[2024-11-11] MEDS: AMINO ACIDS IV SCH (12:58)
[2024-11-11] MEDS: POTASSIUM CHLORIDE IV SCH (12:58)
[2024-11-11 12:59] LABS: EPI CELLS 8 /uL (0-25.1); HYALINE CASTS 0 /uL (0-3.1); URINE APPEARANCE CLEAR; URINE BACTERIA 0 /uL (0-1359); URINE BILIRUBIN NEGATIVE (NEGATIVE); URINE COLOR YELLOW; URINE GLUCOSE (UA) NEGATIVE (NEGATIVE); URINE KETONE NEGATIVE (NEGATIVE); URINE LEUK ESTERASE NEGATIVE (NEGATIVE); URINE NITRITE NEGATIVE (NEGATIVE); URINE PROTEIN 1+ (NEGATIVE); URINE UROBILINOGEN 1.0 mg/dL (0.2-1.0)
[2024-11-11 13:49] LABS: URINE RBC 34 /uL (0-23.9); YEAST PRESENT (NEGATIVE)
[2024-11-11] MEDS: MULTIVIT INJ. ADULT COMBO WITH VIT K 1 COMBO 10 ML VIAL IV SCH (16:58)
[2024-11-12 08:24] LABS: MCHC 31.3 g/dl (32.2-35.5); MEAN CELL VOLUME 93.7 fl (79.4-94.8); MEAN PLT VOLUME 11.3 fl (9.4-12.3); RDW 14.9 % (12.5-17.0)
[2024-11-12 08:26] LABS: GLUCOSE,RANDOM 130.0 mg/dL (74-106); TOT PROT 6.3 g/dl (6.4-8.2)
[2024-11-12 08:28] LABS: CO2 19.0 mmol/L (21-32)
[2024-11-12 08:29] LABS: ALK PHOS 94.0 U/L (40-150)
[2024-11-12 08:32] LABS: CREATININE 1.11 mg/dL (0.55-1.3); SGOT/AST 43.0 U/L (5-34); SGPT/ALT 41.0 U/L (0-55)
[2024-11-12] MEDS: RIVAROXABAN 10 MG TABLET PO SCH (13:35)
[2024-11-12] MEDS ORDERED: RIVAROXABAN 10 MG TABLET PO SCH (18:00)
[2024-11-13] MEDS ORDERED: INSULIN ASPART SLIDING SCALE (NOVOLOG) 1 VIAL SQ ONE (08:02)
[2024-11-13 08:51] LABS: ABSOLUTE IMMATURE GRANULOCYTES 0.09 x10^3/uL (0.0-0.031); BASOPHILS # 0.06 x10^3/uL (0.01-0.08); EOSINOPHIL % 4.5 % (0.7-5.8); EOSINOPHILS # 0.58 x10^3/uL (0.04-0.36); MCHC 30.9 g/dl (32.2-35.5); MEAN CELL VOLUME 94.4 fl (79.4-94.8); MEAN PLT VOLUME 10.8 fl (9.4-12.3); MONOCYTE # 0.87 x10^3/uL (0.24-0.86); MONOCYTE % 6.8 % (4.7-12.5); RDW 15.1 % (12.5-17.0)
[2024-11-13 09:29] LABS: GLUCOSE,RANDOM 131.0 mg/dL (74-106); TOT PROT 6.6 g/dl (6.4-8.2)
[2024-11-13 09:30] LABS: CO2 23.0 mmol/L (21-32)
[2024-11-13 09:32] LABS: ALK PHOS 88.0 U/L (40-150)
[2024-11-13 09:34] LABS: SGOT/AST 37.0 U/L (5-34); SGPT/ALT 38.0 U/L (0-55)
[2024-11-13 09:35] LABS: CREATININE 1.0 mg/dL (0.55-1.3)
[2024-11-13] MEDS ORDERED: ALBUTEROL SO4 2.5/IPRATROPIUM 0.5 INH SOL 3 ML VIAL.NEB. NEB SCH (20:00)
[2024-11-13] MEDS: MELATONIN 5 MG TABLETS PO ONE (22:07)
[2024-11-14] MEDS: methylPREDNISolone NA SUCC 40 MG/1 ML VIAL IVPUSH ONE (12:10)
[2024-11-14] MEDS: ALBUTEROL SULFATE 0.021% (0.63 MG/3 ML) VIAL.NEB NEB SCH (15:42)
[2024-11-14 15:58] LABS: ABSOLUTE IMMATURE GRANULOCYTES 0.08 x10^3/uL (0.0-0.031); BASOPHILS # 0.06 x10^3/uL (0.01-0.08); EOSINOPHIL % 3.7 % (0.7-5.8); EOSINOPHILS # 0.45 x10^3/uL (0.04-0.36); MCHC 30.7 g/dl (32.2-35.5); MEAN CELL VOLUME 93.6 fl (79.4-94.8); MEAN PLT VOLUME 11.2 fl (9.4-12.3); MONOCYTE # 0.56 x10^3/uL (0.24-0.86); MONOCYTE % 4.6 % (4.7-12.5); RDW 15.3 % (12.5-17.0)
[2024-11-14 16:27] LABS: GLUCOSE,RANDOM 125.0 mg/dL (74-106)
[2024-11-14 16:28] LABS: TOT PROT 6.5 g/dl (6.4-8.2)
[2024-11-14 16:29] LABS: CO2 21.0 mmol/L (21-32)
[2024-11-14 16:30] LABS: ALK PHOS 82.0 U/L (40-150)
[2024-11-14 16:33] LABS: CREATININE 0.87 mg/dL (0.55-1.3); SGOT/AST 29.0 U/L (5-34); SGPT/ALT 26.0 U/L (0-55)
[2024-11-14 16:40] LABS: N-TERMINAL BNP 153.4 pg/mL (0-299.9)
[2024-11-15 07:57] LABS: ABSOLUTE IMMATURE GRANULOCYTES 0.04 x10^3/uL (0.0-0.031); BASOPHILS # 0.04 x10^3/uL (0.01-0.08); EOSINOPHIL % 0.2 % (0.7-5.8); EOSINOPHILS # 0.02 x10^3/uL (0.04-0.36); MCHC 31.2 g/dl (32.2-35.5); MEAN CELL VOLUME 93.3 fl (79.4-94.8); MEAN PLT VOLUME 11.1 fl (9.4-12.3); MONOCYTE # 0.87 x10^3/uL (0.24-0.86); MONOCYTE % 7.5 % (4.7-12.5); RDW 15.1 % (12.5-17.0)
[2024-11-15 08:58] LABS: GLUCOSE,RANDOM 117.0 mg/dL (74-106); TOT PROT 6.4 g/dl (6.4-8.2)
[2024-11-15 09:03] LABS: SGOT/AST 26.0 U/L (5-34); SGPT/ALT 23.0 U/L (0-55)
[2024-11-15 09:04] LABS: CREATININE 0.81 mg/dL (0.55-1.3)
[2024-11-15 09:14] LABS: ALK PHOS 76.0 U/L (40-150); CO2 21.0 mmol/L (21-32)
[2024-11-15] MEDS: ALBUTEROL SO4 2.5/IPRATROPIUM 0.5 INH SOL 3 ML VIAL.NEB. NEB SCH (11:24)
[2024-11-15] MEDS: methylPREDNISolone NA SUCC 40 MG/1 ML VIAL IVPUSH SCH (18:23)
[2024-11-16] MEDS: predniSONE 20 MG TABLET (UD) PO SCH (10:31)
[2024-11-18 08:09] LABS: CO2 25.0 mmol/L (21-32)
[2024-11-18 08:13] LABS: CREATININE 0.74 mg/dL (0.55-1.3)
[2024-11-18 08:46] LABS: GLUCOSE,RANDOM 128.0 mg/dL (74-106)
[2024-11-18] MEDS: PANTOPRAZOLE 40 MG TABLET PO SCH (10:23)
[2024-11-18] MEDS: ESCITALOPRAM OXALATE 10 MG TABLET PO SCH (10:23)
[2024-11-19] MEDS ORDERED: RIVAROXABAN 10 MG TABLET PO SCH (16:28)
[2024-11-20 08:43] LABS: ABSOLUTE IMMATURE GRANULOCYTES 0.07 x10^3/uL (0.0-0.031); BASOPHILS # 0.04 x10^3/uL (0.01-0.08); EOSINOPHIL % 3.8 % (0.7-5.8); EOSINOPHILS # 0.54 x10^3/uL (0.04-0.36); MCHC 30.8 g/dl (32.2-35.5); MEAN CELL VOLUME 95.0 fl (79.4-94.8); MEAN PLT VOLUME 10.1 fl (9.4-12.3); MONOCYTE # 0.87 x10^3/uL (0.24-0.86); MONOCYTE % 6.1 % (4.7-12.5); RDW 14.8 % (12.5-17.0)
[2024-11-20 09:43] LABS: GLUCOSE,RANDOM 117.0 mg/dL (74-106)
[2024-11-20 09:44] LABS: TOT PROT 6.2 g/dl (6.4-8.2)
[2024-11-20 09:45] LABS: CO2 27.0 mmol/L (21-32)
[2024-11-20 09:49] LABS: SGOT/AST 26.0 U/L (5-34); SGPT/ALT 22.0 U/L (0-55)
[2024-11-20 09:50] LABS: CREATININE 0.85 mg/dL (0.55-1.3)
[2024-11-20 10:01] LABS: ALK PHOS 75.0 U/L (40-150)
[2024-11-20] MEDS ORDERED: RIVAROXABAN 15 MG TABLET PO SCH (18:00)
[2024-11-21 09:01] LABS: ABSOLUTE IMMATURE GRANULOCYTES 0.07 x10^3/uL (0.0-0.031); BASOPHILS # 0.03 x10^3/uL (0.01-0.08); EOSINOPHIL % 2.5 % (0.7-5.8); EOSINOPHILS # 0.37 x10^3/uL (0.04-0.36); MCHC 30.8 g/dl (32.2-35.5); MEAN CELL VOLUME 93.8 fl (79.4-94.8); MEAN PLT VOLUME 10.0 fl (9.4-12.3); MONOCYTE # 0.88 x10^3/uL (0.24-0.86); MONOCYTE % 6.0 % (4.7-12.5); RDW 14.6 % (12.5-17.0)
[2024-11-21 09:34] LABS: TOT PROT 5.8 g/dl (6.4-8.2)
[2024-11-21 09:35] LABS: CO2 26.0 mmol/L (21-32)
[2024-11-21 09:39] LABS: SGOT/AST 25.0 U/L (5-34); SGPT/ALT 17.0 U/L (0-55)
[2024-11-21 09:40] LABS: CREATININE 0.78 mg/dL (0.55-1.3)
[2024-11-21 09:41] LABS: ALK PHOS 71.0 U/L (40-150); GLUCOSE,RANDOM 129.0 mg/dL (74-106)
[2024-11-21] MEDS: ALBUTEROL SULFATE 0.021% (0.63 MG/3 ML) VIAL.NEB NEB PRN (18:53)
[2024-11-21] MEDS: ALBUTEROL SO4 2.5/IPRATROPIUM 0.5 INH SOL 3 ML VIAL.NEB. NEB SCH (20:32)
[2024-11-21] MEDS: methylPREDNISolone NA SUCC 40 MG/1 ML VIAL IVPUSH ONE (21:34)
[2024-11-22 03:16] VITALS: RESP 18
[2024-11-22] MEDS: ENOXAPARIN NA (PORCINE) 40 MG/0.4 ML DISP.SYRIN SQ SCH (09:13)
[2024-11-22 14:24] VITALS: BP 129/77; PULSE 95; TEMP 97.8
== END 2024-11-22 13:55 | DRG 220 ==
LOC: JER 11:35 → JERBED 16:30 → J6S 19:38 → JICU 10-29 17:58 → J6S 10-30 17:08
PROVIDERS: ADMIT Internal Medicine; ATTEND Internal Medicine
PROC: 0DJ08ZZ Inspection of Upper Intestinal Tract, Via Natural or Artificial Opening Endoscopic (ICD-10-PCS; 2024-10-23)
PROC: 0DT64ZZ Resection of Stomach, Percutaneous Endoscopic Approach (ICD-10-PCS; 2024-10-29)
PROC: 0DBU4ZZ Excision of Omentum, Percutaneous Endoscopic Approach (ICD-10-PCS; 2024-10-29)
PROC: 0BQT4ZZ Repair Diaphragm, Percutaneous Endoscopic Approach (ICD-10-PCS; principal; 2024-10-29 15:45)
PROC: 0DHA3UZ Insertion of Feeding Device into Jejunum, Percutaneous Approach (ICD-10-PCS; 2024-11-08)
PROC: BD16ZZZ Fluoroscopy of Upper GI and Small Bowel (ICD-10-PCS; 2024-11-08)
DX: K44.0 Diaphragmatic hernia with obstruction, without gangrene (principal); E43 Unspecified severe protein-calorie malnutrition; J69.0 Pneumonitis due to inhalation of food and vomit; C16.9 Malignant neoplasm of stomach, unspecified; C78.6 Secondary malignant neoplasm of retroperitoneum and peritoneum; C48.1 Malignant neoplasm of specified parts of peritoneum; E11.9 Type 2 diabetes mellitus without complications; E78.5 Hyperlipidemia, unspecified; E87.6 Hypokalemia; F03.90 Unspecified dementia, unspecified severity, without behavioral disturbance, psychotic disturbance, mood disturbance, and anxiety; F32.9 Major depressive disorder, single episode, unspecified; I10 Essential (primary) hypertension; J45.909 Unspecified asthma, uncomplicated; R13.10 Dysphagia, unspecified; R41.3 Other amnesia; R62.7 Adult failure to thrive; R63.0 Anorexia; R63.4 Abnormal weight loss; I48.0 Paroxysmal atrial fibrillation; K21.9 Gastro-esophageal reflux disease without esophagitis
CPT/HCPCS: 36415; 49441; 71045-TC-FY; 71046-TC-FY; 71260-TC; 74018-TC-FY; 74177-TC; 74220-TC-FY; 74240-TC-FY; 80048; 80053; 80061; 81003; 82962; 83735; 83880; 84100; 84478; 84484; 85025; 85027; 85610; 86803; 86850; 86900; 86901; 87389; 87637-QW; 88305-TC; 88331-TC; 88341-TC; 88342-TC; 93005; 93010; 93306-TC; 94640; 94760; 97116-GP; 97162-GP; 99285-25; Q9967